=== PATIENT | female | born 1955 | race Caucasian/White ===

== ENCOUNTER → 2025-01-13 | Outpatient (CLI) | payer MEDICARE, BC, SELFPAY ==
--- NOTE | 2025-01-13 12:00 | XR_ITS ---
Examination: Bone densitometry Date and time of exam:January 13, 2025 1228 hrs. Indications: Hysterectomy age 46 vitamin D and calcium 10 years, diagnosis rheumatoid arthritis, personal history osteoporosis Technique: Lumbar spine and hip total bone mineralization values of an calculated. Peak reference and age match control results have been displayed. Findings: Lumbar spine total bone mineralization is0.824 gm/cm2. This is 2.0 standard deviations below peak reference. This is 0.1 standard deviations above age-matched controls. Hip total bone mineralization is 0.731 gm/cm2 This is 1.7 standard deviations below peak reference. This is 0.2 standard deviations above age-matched controls Impression: There is osteopenia based on lumbar spine measurements. There is osteoporosis based on hip measurements Lumbar mineralization is increase 4.9% compared with November 22, 2022 Hip mineralization is increased 5.7% compared with November 22, 2022
== END | disposition home or self-care (01) ==
LOC: CDIM 11:30
PROVIDERS: Referring Provider Nurse Practitioner Family; Visit Provider Nurse Practitioner Family
DX: M85.88 Other specified disorders of bone density and structure, other site (principal); M81.8 Other osteoporosis without current pathological fracture
CPT/HCPCS: 77080

== ENCOUNTER → 2025-03-27 | Outpatient (CLI) | payer MEDICARE, BC, SELFPAY ==
--- NOTE | 2025-03-27 07:30 | XR_ITS ---
Examination: MRI left ankle, without contrast Date and time of exam: March 27, 2025 at 0736 hours INDICATIONS: Left ankle pain one year numbness in the toes, diagnosis rheumatoid arthritis Technique: Multiple axial sagittal and coronal images of the left ankle have been obtained with the Siemens high-resolution 1.5 [place] MRI scanner. Images obtained include T2-weighted fat-suppressed sagittal sections, TR 3500, TE 46, T2 weighted coronal fat suppressed images, TR 3050, TE 84, T2-weighted transverse fat suppressed images, TR 3260, TE 63, proton density transverse images, TR 4720 TE 46, and T1 weighted coronal images, TR 560, TE 13. Findings: No acute fracture 5 mm plantar bony calcaneal spur Erosive arthritis involving the subtalar joint with bony erosions inferior talus Diffuse narrowing intertarsal joints Moderate plantar fasciitis Achilles tendon intact Anterior posterior inferior tibiofibular ligaments intact Moderate strain posterior talar fibular ligament Diffuse tendinitis flexor tendons, most prominent posterior tibial tendon Extensor tendons intact IMPRESSION: No occult fracture Erosive arthritis involving the subtalar joint Moderate diffuse narrowing intertarsal joints Moderate plantar fasciitis Diffuse flexor tendinitis
== END | disposition home or self-care (01) ==
LOC: SMRI 07:10
PROVIDERS: PCP Family Medicine; Referring Provider Nurse Practitioner Family; Visit Provider Nurse Practitioner Family
DX: M13.872 Other specified arthritis, left ankle and foot (principal); M72.2 Plantar fascial fibromatosis; M67.874 Other specified disorders of tendon, left ankle and foot; M25.872 Other specified joint disorders, left ankle and foot
CPT/HCPCS: 73721

== ENCOUNTER → 2025-06-12 | Outpatient (CLI) | payer MEDICARE, BC, SELFPAY ==
--- NOTE | 2025-06-12 10:00 | XR_ITS ---
Examination: Screening digital mammography, bilateral Computer aided detection 3-D breast Tomosynthesis, bilateral Date and time of exam: June 22, 2025 0929 hours Compared to mammograms dating to January 20, 2022 Indication: Screening Technique: Nonmagnified MLO, CC views of the breasts to been obtained, reconstructed from 3-D Tomosynthesis images. R2 computer aided detection program utilized for evaluation of suspicious masses and/or abnormal calcifications. 3-D Tomosynthesis images obtained. Findings: The breasts are heterogeneously dense, which may obscure small masses 1:00 nodule right breast again noted Impression: BI-RADS Category 0: Incomplete: Need additional imaging evaluation Recommend repeat right breast sonography to document stability of 1:00 nodule right breast described on breast sonogram March 12, 2023
== END | disposition home or self-care (01) ==
LOC: CDIM 09:29
PROVIDERS: PCP Internal Medicine; Referring Provider Internal Medicine; Visit Provider Internal Medicine
DX: Z12.31 Encounter for screening mammogram for malignant neoplasm of breast (principal); N63.12 Unspecified lump in the right breast, upper inner quadrant
CPT/HCPCS: 77063; 77067

== ENCOUNTER → 2025-06-25 | Outpatient (CLI) | payer MEDICARE, BC, SELFPAY ==
--- NOTE | 2025-06-25 09:40 | XR_ITS ---
Examination: Breast ultrasound, unilateral, right complete Date and time of exam: June 25, 2025 0949 hours INDICATIONS: Mammogram June 22, 2025 1:00 nodule right breast Technique: Real-time mott scale ultrasonographic imaging performed right breast including all 4 quadrants as well as nipple retroareolar and axillary region. Findings: 1:00 nodule circumscribed 9 x 7 mm 2:00 nodule circumscribed 12 x 8 mm IMPRESSION: BI-RADS Category 3: Probably benign findings One additional 6 month right breast sonogram follow-up is needed to document stability of solid nodules described above.
== END | disposition home or self-care (01) ==
LOC: CDIM 09:30
PROVIDERS: PCP Internal Medicine; Referring Provider Internal Medicine; Visit Provider Internal Medicine
DX: N63.12 Unspecified lump in the right breast, upper inner quadrant (principal)
CPT/HCPCS: 76641